=== PATIENT | female | born 1995 | race Caucasian/White ===

== ENCOUNTER 2020-08-17 19:42 | Emergency (ER) | payer BC, SELFPAY ==
[~2020-08-17] VITALS: Ht 157.5 cm; Wt 74.8 kg
[2020-08-17 19:50] VITALS: BP_SYST 141
[2020-08-17] MEDS: LOPERAMIDE HCL 2 MG CAPSULE PO ONE (20:05)
[2020-08-17] MEDS: IBUPROFEN 600 MG TABLET PO ONE (20:05)
[2020-08-17] MEDS: METOCLOPRAMIDE HCL 10 MG TABLET PO ONE (20:05)
[2020-08-17] MEDS ORDERED: IBUP-1969 PO (20:09)
[2020-08-17] MEDS ORDERED: METO-290 PO (20:09)
[2020-08-17] MEDS ORDERED: LOPE2CAP PO (20:09)
[2020-08-17 20:45] VITALS: BP_SYST 141
== END 2020-08-17 20:45 | disposition home or self-care (01) ==
LOC: SED 19:42
DX: B34.9 Viral infection, unspecified (principal); R19.7 Diarrhea, unspecified; Z20.822 Contact with and (suspected) exposure to COVID-19
CPT/HCPCS: 87426; 99284; J8597; 36415

== ENCOUNTER 2021-09-13 08:34 | Emergency (ER) | payer BC ==
[~2021-09-13] VITALS: Ht 157.5 cm; Wt 74.8 kg
[~2021-09-13 08:34] MED LIST: IBUP-1969 PO; LOPE2CAP PO; METO-290 PO
[2021-09-13 08:37] VITALS: BP_SYST 159
--- NOTE | 2021-09-13 08:41 | NUR ---
Patient to ER bed 03 to gown for evaluation. Side rails up.
--- NOTE | 2021-09-13 09:01 | NUR ---
Assumed care of pt who came in from home c/o reoccuring nosebleeds beginning Friday. Pt states she went skydiving for the first time this previous Friday. The parachute opened forcefully and pt states she may have lost consciousness momentarily. She had first NB Mod, two on Friday, yesterday she was treating NBs most of the day. Pt states she has no medical hx. Patient appears in no acute distress at this time. Is A&Ox4, calm and cooperative. Will provide care as ordered.
--- NOTE | 2021-09-13 09:15 | NUR ---
ER Dr. Ross at bedside examining patient.
[2021-09-13] MEDS ORDERED: DIA250 PO (09:50)
--- NOTE | 2021-09-13 09:54 | NUR ---
Patient given written and verbal discharge instructions and verbalizes understanding. ER Dr. Cody MEAD discussed with patient the results and treatment provided. Patient in stable condition. ID arm band removed. IV catheter removed intact and dressing applied, no active bleeding. Patient educated on pain management and to follow up with PMD. Pain Scale 0/10. Opportunity for questions provided and answered.
--- NOTE | 2021-09-13 10:10 | NUR ---
[employer] OVER RIG OPERATOR ACSW Mitzy responded to a generated "Patient Requests Advanced Directive Information". ACSW attempted to contact patient in ED, but patient has been discharged. ACSW also informed RN Stacey of attempt who confirmed patient's discharge.
== END 2021-09-13 09:54 | disposition home or self-care (01) ==
LOC: SED 08:34
DX: G93.2 Benign intracranial hypertension (principal); R51.9 Headache, unspecified; R04.0 Epistaxis; Z79.899 Other long term (current) drug therapy
CPT/HCPCS: 70450-TC; 76376; 81025; 99284